=== PATIENT | female | born 1995 | race Two or more races ===

== ENCOUNTER 2016-07-18 20:31 | Inpatient (IN) | payer OTHER ==
[~2016-07-18 20:31] MED LIST: NS 1,000 ML IV ONE
[2016-07-18] MEDS ORDERED: NALOXONE HCL 2 MG/2 ML SYR IVP ONE (20:43)
--- NOTE | 2016-07-18 20:56 | CPEKG ---
Heart Rate: 121 RR Interval: 496 P-R Interval: 125 QRSD Interval: 82 QT Interval: 264 QTC Interval: 375 P Wal[place]: 55 QRS [place]nut: 67 T Wave Walnut: -6 EKG Severity - BORDERLINE ECG - EKG Impression: SINUS TACHYCARDIA EKG Impression: BORDERLINE T WAVE ABNORMALITIES Electronically Signed By: Scott Alexander 18-Jul-2016 23:45:26
[2016-07-18 20:58] LABS: % IMMATURE GRANULYOCYTES 0.2 % (0.0-1.1); ABSOLUTE IMMATURE GRANULOCYTES 0.02 10^3/uL (0.00-0.10); ADD DIFF? NO; ADD MORPH? NO; ADD SCAN? NO; ATYPICAL LYMPHOCYTE FLAG 40 (0-99); FRAGMENT RBC FLAG 0 (0-99); HEMATOCRIT 40.9 % (38.0-47.0); HEMOGLOBIN 14.2 g/dL (12.6-16.3); LEFT SHIFT FLG 0 (0-99); LIPEMIA HEMOLYSIS FLAG 90 (0-99); MEAN CELL HEMOGLOBIN 32.5 pg (27.9-34.1); MEAN CELL HEMOGLOBIN CONCENTR. 34.7 g/dL (32.4-36.7); MEAN CELL VOLUME 93.6 fL (81.5-99.8); MEAN PLATELET VOLUME 10.5 fL (8.7-11.7); PLATELET CLUMPS FLAG 0 (0-99); PLATELET COUNT 281 10^3/uL (150-400); RED BLOOD CELL COUNT 4.37 10^6/uL (4.18-5.33); RED CELL DISTRIBUTION WIDTH 11.8 % (11.5-15.2)
[2016-07-18 21:06] LABS: ANION GAP 20 mEq/L (8-16); CALCIUM 9.7 mg/dL (8.5-10.4); CARBON DIOXIDE 18 mEq/l (22-31); CHLORIDE 107 mEq/L (97-110); CREATININE 0.6 mg/dL (0.6-1.0); ETHANOL SERUM < 10 mg/dL (0-10); GLOMERULAR FILTRATION RATE > 60; GLUCOSE 137 mg/dL (70-100); SALICYLATE < 1.0 mg/dL (2.0-20.0); SODIUM 145 mEq/L (134-144)
[2016-07-18] MEDS ORDERED: LORazepam 2 MG/ML INJ ONE (21:06)
[2016-07-18] MEDS ORDERED: LORazepam 2 MG/ML INJ IVP ONE (21:09)
[2016-07-18] MEDS ORDERED: NS 1,000 ML IV ONE (21:22)
[2016-07-18 21:28] LABS: POTASSIUM 2.5 mEq/L (3.5-5.2)
[2016-07-18] MEDS ORDERED: POTASSIUM Cl (KCl) 100 ML IV ONE (21:40)
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
[2016-07-18] MEDS ORDERED: ACETYLCYSTEINE IV ONE ×3 (22:00→23:00)
[2016-07-18] MEDS ORDERED: D5W IV ONE ×3 (22:00→23:00)
[2016-07-18] MEDS ORDERED: ACETYLCYSTEINE IV PROTOCOL 1 EACH MISC SCH ×2 (22:00→23:45)
[2016-07-18 22:05] LABS: ALBUMIN 5.1 g/dL (3.5-5.0); BILIRUBIN,TOTAL 0.8 mg/dL (0.1-1.4); BILIRUBIN-CONJUGATED 0.3 mg/dL (0.0-0.5); BILIRUBIN-UNCONJUGATED 0.5 mg/dL (0.0-1.1); TOTAL PROTEIN 8.8 g/dL (6.3-8.2)
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
[2016-07-18] MEDS ORDERED: PROMETHAZINE HCL 25 MG/ML INJ IVP PRN (23:43)
[2016-07-18] MEDS ORDERED: ONDANSETRON 4 MG/2 ML VIAL IVP PRN (23:43)
[2016-07-18] MEDS ORDERED: PROTOCOL MAGNESIUM 1 DOSE IV PRN (23:44)
[2016-07-18] MEDS ORDERED: PROTOCOL POTASSIUM 1 DOSE MISC PRN (23:44)
[2016-07-18] MEDS ORDERED: D5W 1/2 NS W/ 20 KCl/L 1,000 ML IV SCH (23:45)
[2016-07-19 00:29] LABS: MAGNESIUM 1.6 mg/dL (1.6-2.3); POTASSIUM 3.6 mEq/L (3.5-5.2)
[2016-07-19 00:34] LABS: APTT 30.4 SEC (23.0-38.0); INR 1.5 (0.83-1.16); PROTIME(PATIENT) 18.1 SEC (12.0-15.0)
[2016-07-19] MEDS: POTASSIUM Cl (KCl) 100 ML IV SCH ×3 (01:11→03:33)
[2016-07-19] MEDS ORDERED: ACETYLCYSTEINE IV ONE (03:00)
[2016-07-19] MEDS ORDERED: D5W IV ONE (03:00)
[2016-07-19 05:53] LABS: ALANINE AMINOTRANSFERASE 28 IU/L (9-52); ALBUMIN 4.1 g/dL (3.5-5.0); ALKALINE PHOSPHATASE 37 IU/L (38-126); ANION GAP 11 mEq/L (8-16); ASPARTATE AMINOTRANSFERASE 26 IU/L (14-46); BILIRUBIN,TOTAL 0.8 mg/dL (0.1-1.4); CALCIUM 9.1 mg/dL (8.5-10.4); CARBON DIOXIDE 20 mEq/l (22-31); CHLORIDE 111 mEq/L (97-110); CREATININE 0.4 mg/dL (0.6-1.0); GLOMERULAR FILTRATION RATE > 60; GLUCOSE 108 mg/dL (70-100); MAGNESIUM 1.9 mg/dL (1.6-2.3); POTASSIUM 3.9 mEq/L (3.5-5.2); SODIUM 142 mEq/L (134-144); TOTAL PROTEIN 7.3 g/dL (6.3-8.2)
--- NOTE | 2016-07-19 15:05 | HOSPPROG ---
Hospitalist Progress Note Assessment/Plan: * acetaminophen and NyQuil overdose * LFTs are normal * finishing up NAC protocol * will be medically cleared tomorrow * suicide attempt * on M1 hold Subjective: No new complaints Objective: Vital Signs Temp Pulse Resp BP Pulse Ox 37.1 C 67 20 92/55 L 96 07/19/16 12:00 07/19/16 12:00 07/19/16 12:00 07/19/16 12:00 07/19/16 12:00 Laboratory Results 07/19/16 05:21 07/18/16 07/19/16 07/20/16 05:59 05:59 05:59 Intake Total 2873 Output Total 2600 800 Balance 273 -800 PT 18.1 SEC (12.0-15.0) H 07/19/16 00:00 INR 1.50 (0.83-1.16) H 07/19/16 00:00 - Physical Exam Constitutional: no apparent distress, appears nourished, not in pain Eyes: anicteric sclera Respiratory: no respiratory distress Skin: warm Neurologic: AAOx3 Psychiatric: interacting appropriately, not anxious, not encephalopathic, thought process linear ICD10 Worksheet Patient Problems: Problems Problem Status Onset Acetaminophen overdose Acute Altered mental status Acute Diphenhydramine overdose Acute Suicide attempt Acute
[2016-07-19] MEDS ORDERED: LORazepam 1 MG TAB PO ONE (21:52)
[2016-07-20 06:00] LABS: ALANINE AMINOTRANSFERASE 22 IU/L (9-52); ALKALINE PHOSPHATASE 60 IU/L (38-126); ANION GAP 11 mEq/L (8-16); ASPARTATE AMINOTRANSFERASE 35 IU/L (14-46); BILIRUBIN,TOTAL 0.9 mg/dL (0.1-1.4); BILIRUBIN-CONJUGATED 0.3 mg/dL (0.0-0.5); BILIRUBIN-UNCONJUGATED 0.6 mg/dL (0.0-1.1); CALCIUM 9.3 mg/dL (8.5-10.4); CARBON DIOXIDE 19 mEq/l (22-31); CHLORIDE 112 mEq/L (97-110); CREATININE 0.5 mg/dL (0.6-1.0); GLOMERULAR FILTRATION RATE > 60; GLUCOSE 83 mg/dL (70-100); POTASSIUM 3.8 mEq/L (3.5-5.2); SODIUM 142 mEq/L (134-144); TOTAL PROTEIN 7.2 g/dL (6.3-8.2)
[2016-07-20 15:23] VITALS: BP 101/52; PULSE 84; RESP 16; TEMP 98.3; O2SAT 97
--- NOTE | 2016-07-20 17:44 | GDS ---
DISCHARGE DIAGNOSIS: Intentional acetaminophen overdose. HISTORY: This is a 20-year-old female who presented with an intentional acetaminophen overdose. HOSPITAL COURSE: The patient's acetaminophen level was over 200. She was started on the NAC protoc ol. Her LFTs remained normal. Her acetaminophen level came back to negative, and the patient was d ischarged to Behavioral Health. /[id number]/MODL
== END 2016-07-20 16:21 | DRG 948 ==
LOC: EEVIPCON 21:42 → F2N 23:01
PROVIDERS: ADMIT Internal Medicine; ATTEND Internal Medicine
DX: R41.82 Altered mental status, unspecified (principal); R00.0 Tachycardia, unspecified; E87.6 Hypokalemia; T39.1X2A Poisoning by 4-Aminophenol derivatives, intentional self-harm, initial encounter; T45.0X2A Poisoning by antiallergic and antiemetic drugs, intentional self-harm, initial encounter
CPT/HCPCS: 80305; 82947-QW; 92610-GN; 96365; G0480; J0132; J2310

== ENCOUNTER 2016-07-20 16:45 | Inpatient (IN) | payer OTHER ==
[2016-07-20] MEDS ORDERED: MAGNESIUM HYDROXIDE 30 ML UDCUP PO PRN (17:53)
[2016-07-20] MEDS ORDERED: MAG HYDROX/AL HYDROX/SIMETH 30 ML UDCUP PO PRN (17:53)
[2016-07-20] MEDS ORDERED: LORazepam 0.5 MG TAB PO PRN (17:53)
[2016-07-20] MEDS ORDERED: NICOTINE POLACRILEX 2 MG GUM B PRN (17:53)
[2016-07-20] MEDS: ACETAMINOPHEN 325 MG TAB PO PRN (21:42)
[2016-07-21 06:34] VITALS: RESP 12
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
[2016-07-21] MEDS: ACETAMINOPHEN 325 MG TAB PO PRN (20:46)
[2016-07-21] MEDS: clonazePAM 0.5 MG TAB PO SCH (20:47)
[2016-07-22] MEDS: clonazePAM 0.5 MG TAB PO SCH (22:34)
--- NOTE | 2016-07-22 22:55 | SOAPPROG ---
SOAP Progress Note Assessment/Plan: Assessment: Plan: 07/22/16 22:55 Doing much better. CCM. Will finalize d/c plan and look toward d/c tomorrow. Subjective: Pt seen, discussed with staff. More upbeat, positive today. Pleasant and interactive on unit. Participating in all groups. Slept well last night with Klonopin. No nightmares, slept continuously for >8 hours with no nightmares. Objective: Vital Signs Temp Pulse Resp BP Pulse Ox 36.9 C 66 12 100/63 99 07/22/16 06:00 07/22/16 06:00 07/22/16 06:00 07/22/16 06:00 07/22/16 06:00 MSE: Calm, coop. Affect is much brighter, smiling spontaneously. Mood is "much better." TP linear. TC reveals no psychosis. No current Si. - Time Spent With Patient Time Spent With Patient: 25" ICD10 Worksheet Patient Problems: Problems Problem Status Onset Acetaminophen overdose Acute Altered mental status Acute Diphenhydramine overdose Acute Suicide attempt Acute
[2016-07-23 06:25] VITALS: BP 86/52; PULSE 67; TEMP 97.7; O2SAT 98
[2016-07-26 10:06] LABS: CHLAMYDIA AMPLIFICATION GENPRB NEGATIVE (NEGATIVE)
== END 2016-07-23 13:05 | disposition home or self-care (01) | DRG 880 ==
LOC: BBEH 16:45
PROVIDERS: ADMIT Psychiatry & Neurology Psychiatry; ATTEND Psychiatry & Neurology Psychiatry
DX: F43.0 Acute stress reaction (principal); T39.1X2A Poisoning by 4-Aminophenol derivatives, intentional self-harm, initial encounter; Z91.410 Personal history of adult physical and sexual abuse

== ENCOUNTER 2017-05-31 21:48 | Emergency (ER) | payer OTHER ==
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
[2017-05-31 21:55] VITALS: TEMP 98.6
[2017-05-31 22:58] VITALS: BP 115/84; PULSE 88; RESP 16; O2SAT 96
== END 2017-05-31 22:59 | disposition home or self-care (01) ==
DX: S06.0X0A Concussion without loss of consciousness, initial encounter (principal); V49.3XXA Car occupant (driver) (passenger) injured in unspecified nontraffic accident, initial encounter; Y92.410 Unspecified street and highway as the place of occurrence of the external cause; Y99.0 Civilian activity done for income or pay; Y93.89 Activity, other specified